=== PATIENT | male | born 1975 | race Caucasian/White ===

== ENCOUNTER 2016-11-09 09:53 | Emergency (ER) | payer OTHER ==
--- NOTE | 2016-11-09 16:10 | ED ORDER SUMMARY ---
..... Patient: LEONARD CASTILLO JR OrderSheet [facility] VisitID: [id number] [place] [address] 40y, M Registration Date/Time: 11/09/2016 ORDER SHEET Weight: 86.1 kg (stated) Allergies: Toradol, Codeine, Zofran GENERAL ORDERS: Blood Culture (No) (N/A) Urgent (10:40 11/09/2016 Rakesh Handley) (Ack 10:42 TBergley) CBC w Diff Urgent (10:40 11/09/2016 Rakesh Handley) (Ack 10:42 TBergley) CMP Urgent (10:40 11/09/2016 Rakesh Handley) (Ack 10:42 TBergley) UA-Culture if indicated Urgent (10:40 11/09/2016 Rakesh Handley) (Ack 10:42 TBergley) (13:59 LSullivan R.N.) Urine Drug Screen Urgent (10:40 11/09/2016 Rakesh Handley) (Ack 10:42 TBergley) (13:59 LSullivan R.N.) MEDICATION ORDERS: Phenergan IV 12.5 mg (HIGH ALERT MEDICATION, NOW) (11:00 11/09/2016 Rakesh Handley) (11:07 LSullivan R.N.) Phenergan IV 12.5 mg (HIGH ALERT MEDICATION, NOW) (13:31 11/09/2016 Rakesh Handley) (14:19 LSullivan R.N.) IV FLUIDS: IV Saline Lock (10:40 11/09/2016 Rakesh Handley) (10:47 LSullivan R.N.) Demerol IV 25 mg (HIGH ALERT MEDICATION, NOW) (10:41 11/09/2016 Rakesh Handley) (10:57 LSullivan R.N.) IV NS : initial bolus none -, then 1000 mL/hr for X1 (NOW) (11:00 11/09/2016 Rakesh Handley) (11:08 LSullivan R.N.) Demerol IV 25 mg (HIGH ALERT MEDICATION, NOW) (13:28 11/09/2016 Rakesh Handley) (14:20 Zain Rodriguez) ORDER SHEET NOTES: [Electronically signed by Adrian Coppola Dr. (16:14 11/09/2016)] [Electronically signed by Mary Anne Kohli R.N. (19:17 11/09/2016)] [Electronically locked/signed by Mary Anne Kohli R.N. (19:17 11/09/2016)]
--- NOTE | 2016-11-09 16:10 | ED NURSING NOTES ---
Clinical Report - Nurses [facility] [address] [place] [address] 11/09/2016 9:53 Patient: LEONARD CASTILLO JR TRIAGE Triage time 10:11 Nov 09 2016. Acuity: LEVEL 4. Chief Complaint: SKIN PROBLEM and BOIL. SEPSIS SCREEN: Sepsis Screen: negative. Infection suspected/documented. MAURICIO COMA SCORE: [place] Coma Scale: 15- eyes open spontaneously (4); best verbal response- oriented x 4 (5); best motor response- obeys commands (6). --10:17 Fer Jones R.N. 10:11 11/09/16. BP: 138/58. HR: 84. RR: 18. O2 saturation: 100%. Temp: 98.2 F. Pain level now 06/07. --10:17 Fer Jones R.N. Weight: 86.1 kg stated. Height/Length: 71 inches Per Patient. BMI: 26.5. --10:12 Fer Jones R.N. Medications None. --10:15 Fer Jones R.N. Allergies Toradol. --10:15 Fer Jones R.N. Codeine. --10:15 Fer Jones R.N. Zofran. --10:15 Fer Jones R.N. History Arrived by private vehicle. Historian: patient. Accompanied by family. Reported as (left bittocks). It is described as severely painful. ( Has large abscess on left buttocks. Patient denies recent injections in that area with drugs. this area was a previous abscess. MRSA carrier.). No fever, muscle aches, headache, cough or difficulty breathing. No itching or weakness. Not itchy. 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 PAST MEDICAL HX: Immunizations: up-to-date. SOCIAL HX: Never smoker. History of drug use. (clean for 4 months per pt). No alcohol use. SELF HARM ASSESSMENT: A self harm assessment was performed. The patient answered "no" to the question "Have you recently felt down, depressed, or hopeless?" and "Do you have thoughts of harming or killing yourself?". FALL RISK ASSESSMENT: Fall risk assessment completed. No fall risk identified. NUTRITIONAL RISK ASSESSMENT: The nutritional risk assessment revealed no deficiencies. FUNCTIONAL ASSESSMENT: Functional assessment: no impairments noted. LEARNING NEEDS ASSESSMENT: The learning needs assessment revealed no barriers. ABUSE ASSESSMENT: Abuse assessment: (yes) The patient was asked "Do you feel safe in your home?". SKIN INTEGRITY ASSESSMENT: Skin integrity risk assessment completed. No skin integrity risk identified. --10:17 Fer Jones R.N. PROBLEMS: Lifestyle / Substance Problems. Prior Injury, Same Area. Fall. Abscess. Substance Abuse. Sprain. Contusion. Mechanism of Injury. Tetanus Status. Immunizations. Nephrolithiasis. --10:15 Fer Jones R.N. ADDITIONAL SURGERIES: Cholecystectomy. I&D. --10:15 Fer Jones R.N. Interventions ID and allergy band on patient. --10:17 Fer Jones R.N. PHYSICAL ASSESSMENT Ambulatory to room. ( Has a right broken arm which is casted.). GENERAL / NEURO / PSYCH: Alert. The patient does not appear to be in acute distress. Appears in pain. Oriented X 4. HEENT: Pupils equal, round and reactive to light. Mucous membranes are pink. RESPIRATORY: Respirations not labored. Breath sounds within normal limits. CVS: Capillary refill less than 2 seconds. Pulses within normal limits. GI / : Abdomen nontender. SKIN: Skin lesion present. --10:18 Fer Jones R.N. NURSING PROGRESS NOTES The initial plan of care for this patient includes an assessment with efforts to address impairment of the integumentary system; hydration needs. Pulse oximeter and NIBP monitor placed on patient. Reassurance given. Call light placed in reach. Side rails up x 1. Bed placed in lowest position. Brakes of bed on. --10:18 Fer Jones R.N. 10:47 11/09/2016 Site #1 started via IV in the left hand with an 24g angiocath, with aseptic technique and good blood return; two attempts. Saline lock flushed with 5 mL saline (UNABLE TO GET BLOOD SAMPLES). --10:47 Mary Anne Kohli R.N. 10:51 11/09/2016 Demerol (Meperidine HCl) IVP 25 mg given over 1 minute(s) via site #1. Allergies verified and confirmed 5 rights. --10:57 Mary Anne Kohli R.N. 11:07 11/09/2016 PHENERGAN (Promethazine HCl) IVP 12.5 mg given over 2 minute(s) via site #1. Allergies verified and confirmed 5 rights. (diluted in NS). --11:07 Mary Anne Kohli R.N. 11:08 11/09/2016 Started bag #1 1000 mL IV Fluids IV NS (Saline); at 125 mL/hr via site #1 via IV pump. Confirmed 5 rights. IV patency established. IV site checked: no pain, redness, or swelling. IV flushed thoroughly pre- and post-medication administration (Tiny vein will not handle 1000mls/hr so rate adjusted so as to not blow the vein.). --11:08 Mary Anne Kohli R.N. ( Pt became nauseated from the Demerol, Phenergan given for nausea, and fluids started, after consulting with MYNOR). --11:09 Mary Anne Kohli R.N. 14:18 11/09/2016 PHENERGAN (Promethazine HCl) IVP 12.5 mg given over 1 minute(s) via site #1. Confirmed 5 rights. --14:19 Mary Anne Kohli R.N. 14:20 11/09/2016 Demerol (Meperidine HCl) IVP 25 mg given over 1 minute(s) via site #1. Confirmed 5 rights. --14:20 Mary Anne Kolhi R.N. DISPOSITION / DISCHARGE Departure time: 16:24 Nov 09 2016. No learning barriers present. Discharge instructions provided and reviewed with the patient. Reviewed warnings. Reviewed medication(s). Treatments reviewed. Reviewed referrals. Patient verbalized understanding. Written instructions provided in Macedonian. The patient was discharged home and accompanied by family. He left the Emergency Department ambulatory and via private vehicle. Patient driving. ( Patient had I &D per Dr.Altman. Wound packed and dressed with gauze dressing.). --16:24 Fer Jones R.N. 16:22 11/09/16. BP: 130/70. HR: 80. RR: 20. O2 saturation: 100%. Temp: 98.6 F. Pain level now 04/07. --16:24 Fer Jones R.N. Locked/Released at 11/09/2016 19:17 by Mary Anne Kohli R.N.
--- NOTE | 2016-11-09 16:10 | ED ORDER SUMMARY ---
..... Patient: LEONARD CASTILLO JR OrderSheet [facility] VisitID: [id number] [place] [address] 40y, M Registration Date/Time: 11/09/2016 ORDER SHEET Weight: 86.1 kg (stated) Allergies: Toradol, Codeine, Zofran GENERAL ORDERS: Blood Culture (No) (N/A) Urgent (10:40 11/09/2016 Rakesh Handley) (Ack 10:42 TBergley) CBC w Diff Urgent (10:40 11/09/2016 Rakesh Handley) (Ack 10:42 TBergley) CMP Urgent (10:40 11/09/2016 Rakesh Handley) (Ack 10:42 TBergley) UA-Culture if indicated Urgent (10:40 11/09/2016 Rakesh Handley) (Ack 10:42 TBergley) (13:59 LSullivan R.N.) Urine Drug Screen Urgent (10:40 11/09/2016 Rakesh Handley) (Ack 10:42 TBergley) (13:59 LSullivan R.N.) MEDICATION ORDERS: Phenergan IV 12.5 mg (HIGH ALERT MEDICATION, NOW) (11:00 11/09/2016 Rakesh Handley) (11:07 LSullivan R.N.) Phenergan IV 12.5 mg (HIGH ALERT MEDICATION, NOW) (13:31 11/09/2016 Rakesh Handley) (14:19 LSullivan R.N.) IV FLUIDS: IV Saline Lock (10:40 11/09/2016 Rakesh Handley) (10:47 LSullivan R.N.) Demerol IV 25 mg (HIGH ALERT MEDICATION, NOW) (10:41 11/09/2016 Rakesh Handley) (10:57 LSullivan R.N.) IV NS : initial bolus none -, then 1000 mL/hr for X1 (NOW) (11:00 11/09/2016 Rakesh Handley) (11:08 LSullivan R.N.) Demerol IV 25 mg (HIGH ALERT MEDICATION, NOW) (13:28 11/09/2016 Rakesh Handley) (14:20 Zain Rodriguez) ORDER SHEET NOTES: [Electronically signed by Adrian Coppola Dr. (16:14 11/09/2016)] [Electronically signed by Mary Anne Kohli R.N. (19:17 11/09/2016)] [Electronically locked/signed by Mary Anne Kohli R.N. (19:17 11/09/2016)]
--- NOTE | 2016-11-09 16:10 | ED CLINICAL REPORT ---
Clinical Report - Physicians[facility] [address] [place] [place] [address] 11/09/2016 9:53 Patient: LEONARD CASTILLO JR Time Seen: 10:12; initial patient contact. Arrived- By private vehicle. Historian- patient. HISTORY OF PRESENT ILLNESS Chief Complaint: BOIL. This started yesterday and is still present and worsening. It was gradual in onset. It is described as painful. It has been located on the left buttock. A possible cause has been identified. No recent medication or insect bite. Similar symptoms previously: Many times. ( Has undergone I&D in the same area 2x prior. No longer shooting up, sober ~ 4 months). Recent medical care: Not recently seen/assessed. REVIEW OF SYSTEMS No fever, nausea, diarrhea, joint pain or vomiting. He has had chills. All systems otherwise negative, except as recorded above. PAST HISTORY Lifestyle / Substance Problems. Prior Injury, Same Area. Fall. Abscess. Substance Abuse. Sprain. Contusion. Mechanism of Injury. Tetanus Status. Immunizations. Nephrolithiasis. SURGERIES: Cholecystectomy. I&D. SOCIAL HISTORY Never smoker. 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 No alcohol use. ADDITIONAL NOTES The nursing notes have been reviewed with agreement regarding the chief complaint, PMH and patient medications and allergies. PHYSICAL EXAM Vital Signs: 11/09/2016 10:11 BP: 138/58. HR: 84. RR: 18. O2 saturation: 100%. Temp: 98.2 F. Have been reviewed. Hypotensive. Heart rate normal. Respiratory rate normal. Temperature normal. Oxygen saturation normal. Appearance: Alert. Oriented X3. No acute distress. Eyes: Conjunctivae and eyelids normal. CVS: Normal heart rate and rhythm. Heart sounds normal. Respiratory: No respiratory distress. Breath sounds normal. Abdomen: Nontender. No organomegaly. Skin: Single large abscess to left buttock (length:20 cm width:10 cm). Extremities: No lower extremity edema. Neuro: Oriented X 3. LABS, X-RAYS, AND EKG Laboratory Tests: UA-Culture if indicated: (JAELYN: 11/09/2016 10:40) ( [facility] 11/09/2016 12:15) Final results Test Result Flag Units (Reference) URINE COLOR YELLOW URINE APPEARANCE CLEAR URINE GLUCOSE NEGATIVE (NEGATIVE) URINE BILIRUBIN NEGATIVE (NEGATIVE) URINE KETONE NEGATIVE (NEGATIVE) URINE SPECIFIC GRAVITY 1.025 (1.010-1.030) URINE PH 5.5 (5.0-8.0) URINE PROTEIN TRACE (NEGATIVE) URINE UROBILINOGEN 1.0 EU/dL (0.2-1.0) URINE NITRITE NEGATIVE (NEGATIVE) URINE BLOOD NEGATIVE (NEGATIVE) URINE LEUK ESTERASE NEGATIVE (NEGATIVE) URINE RBC 0-1 rbc/hpf (0-1) URINE WBC 0-1 wbc/hpf (0-1) URINE EPITHELIAL CELLS 0-1 EPI/hpf (0-5) URINE BACTERIA NONE SEEN (NONE SEEN) URINE COMMENT CULT NOT INDICATED 2+ MUCOUS STRANDSURINE CULTURES ARE SET-UP BASED ON THE FOLLOWING CRITERIA:POSITIVE NITRITEPOSITIVE LEUKOCYTE ESTERASEGREATER THAN 10 WHITE BLOOD CELLSMODERATE (2+) OR GREATER BACTERIA CBC w Diff: (JAELYN: 11/09/2016 14:05) ( [facility] 11/09/2016 15:19) Final results Test Result Flag Units (Reference) WHITE BLOOD COUNT 19.9 H K/uL (4.5-11.5) RED BLOOD COUNT 3.75 L M/uL (4.50-5.90) HEMOGLOBIN 7.8 L gm/dL (13.5-17.5) HEMATOCRIT 25.3 L % (41.0-53.0) MEAN CELL VOLUME 68 L fL (80-100) MEAN CORPUSCULAR HGB 21 L pg (26-34) MEAN CORPUSCULAR HGB CONC 31 g/dL (31-37) RED CELL DISTRIBUTION WIDTH 17.7 H % (11.6-14.8) PLATELET COUNT 711 H K/uL (150-400) NEUTROPHIL % 88.4 H % (50-75) LYMPH % 8.4 L % (25-40) MONO % 2.8 L % (3-14) EOSINOPHIL % 0.2 % (0-4) BASOPHIL % 0.2 % (0-2) RBC MORPHOLOGY 2+ MICROCYTOSIS~~1+ HYPOCHROMASIA~~1+ ANISOCYTOSIS Urine Drug Screen: (JAELYN: 11/09/2016 10:40) ( MsgRcvd 11/09/2016 12:10) Final results Test Result Flag Units (Reference) AMPHETAMINE/METHAMPHETAMINE NEGATIVE (NEGATIVE) BARBITURATE NEGATIVE (NEGATIVE) BENZODIAZEPINE NEGATIVE (NEGATIVE) CANNABINOID NEGATIVE (NEGATIVE) COCAINE NEGATIVE (NEGATIVE) ECSTASY NEGATIVE (NEGATIVE) METHADONE POSITIVE H (NEGATIVE) OPIATE POSITIVE H (NEGATIVE) The urine drug screen is a qualitative screening test fordrug overdose and abuse. All screen results should beconsidered as presumptive.Drugs screened for are as follows:BenzodiazepinesCocaineAmphetamines/MetamphetaminesTHC (Tetrahydrocannabinol)OpiatesBarbituratesEcstasyMethadonePositive results are unconfirmed. For confirmation, notifythe lab for the specimen to be sent to the reference lab.All confirmations must be performed by a differentmethodology.The ingestion of natural herbal and plant productscontaining Ephedra/Ephedra metabolites can produce in urineone or more substances capable of cross reacting withamphetamine/methamphetamine immunoassays. These testsprovide a preliminary result only. A more specificalternative chemical method must be used to obtain aconfirmed analytical result. CMP: (JAELYN: 11/09/2016 14:33) ( MsgRcvd 11/09/2016 15:22) Final results Test Result Flag Units (Reference) GLUCOSE 91 mg/dL (70-110) BUN 12 mg/dL (7-18) CREATININE 0.8 mg/dL (0.6-1.3) Estimated GFR >60 mL/min Estimated GFR- >60 mL/min Note: Persistent reduction over 3 months in eGFR<60 mL/min/1.73 m2 defines CKD. Patients with eGFR values>=60 mL/min/1.73 m2 may also have CKD if evidence ofpersistent proteinuria. Additional information may be foundat www.kidney.org. SODIUM 141 mmol/L (136-145) POTASSIUM 3.7 mmol/L (3.5-5.1) CHLORIDE 106 mmol/L (98-107) CARBON DIOXIDE 26 mmol/L (21-32) CALCIUM 8.3 L mg/dL (8.5-10.1) TOTAL PROTEIN 9.0 H g/dL (6.4-8.2) ALBUMIN 2.3 L g/dL (3.3-5.0) BILIRUBIN, TOTAL 0.6 mg/dL (0.0-1.0) ALKALINE PHOSPHATASE 182 H U/L (46-116) AST (SGOT) 22 U/L (15-37) ALT (SGPT) 36 U/L (12-78) . PROGRESS AND PROCEDURES Course of Care: 11/09/2016 10:11 BP: 138/58. HR: 84. RR: 18. O2 saturation: 100%. Temp: 98.2 F. Vital Signs: have been reviewed. Hypotensive. Heart rate normal. Respiratory rate normal. Temperature normal. Oxygen saturation normal. Discussed case with on-call health care provider, (call returned [phone] Dr. Medeiros saw pt in ED and performed I&D at bedside and D/C'd pt from the ED.). Reviewed test results and need for additional work-up. Health care provider will see patient in ED. Disposition: Discharged home in good and improved condition. Condition: good. CLINICAL IMPRESSION Single deep abscess to the left lower extremity with incision and drainage. Moderate leukocytosis with bandemia. INSTRUCTIONS Prescription Medications: Hydrocodone/APAP 5mg / 325mg: take 1 orally every 6 hours as needed for pain. Dispense fifteen (15). No refill. Clindamycin 300 mg: take 1 capsule orally every 8 hours for 7 days. No refill. Follow-up: Return to the emergency department in two days for wound check and packing removal. Screening today revealed the patient's blood pressure to be in the pre-hypertensive range. The patient should follow up with a primary care provider for blood pressure management. (Electronically signed by Adrian Coppola Dr. 11/09/2016 16:14)
--- NOTE | 2016-11-09 16:10 | ED CLINICAL REPORT ---
Clinical Report - [facility] [address] [place] [address] 11/09/2016 9:53 Patient: LEONARD CASTILLO JR Time Seen: 10:12; initial patient contact. Arrived- By private vehicle. Historian- patient. HISTORY OF PRESENT ILLNESS Chief Complaint: BOIL. This started yesterday and is still present and worsening. It was gradual in onset. It is described as painful. It has been located on the left buttock. A possible cause has been identified. No recent medication or insect bite. Similar symptoms previously: Many times. ( Has undergone I&D in the same area 2x prior. No longer shooting up, sober ~ 4 months). Recent medical care: Not recently seen/assessed. REVIEW OF SYSTEMS No fever, nausea, diarrhea, joint pain or vomiting. He has had chills. All systems otherwise negative, except as recorded above. PAST HISTORY Lifestyle / Substance Problems. Prior Injury, Same Area. Fall. Abscess. Substance Abuse. Sprain. Contusion. Mechanism of Injury. Tetanus Status. Immunizations. Nephrolithiasis. SURGERIES: Cholecystectomy. I&D. SOCIAL HISTORY Never smoker. 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 No alcohol use. ADDITIONAL NOTES The nursing notes have been reviewed with agreement regarding the chief complaint, PMH and patient medications and allergies. PHYSICAL EXAM Vital Signs: 11/09/2016 10:11 BP: 138/58. HR: 84. RR: 18. O2 saturation: 100%. Temp: 98.2 F. Have been reviewed. Hypotensive. Heart rate normal. Respiratory rate normal. Temperature normal. Oxygen saturation normal. Appearance: Alert. Oriented X3. No acute distress. Eyes: Conjunctivae and eyelids normal. CVS: Normal heart rate and rhythm. Heart sounds normal. Respiratory: No respiratory distress. Breath sounds normal. Abdomen: Nontender. No organomegaly. Skin: Single large abscess to left buttock (length:20 cm width:10 cm). Extremities: No lower extremity edema. Neuro: Oriented X 3. LABS, X-RAYS, AND EKG Laboratory Tests: UA-Culture if indicated: (JAELYN: 11/09/2016 10:40) ( [facility] 11/09/2016 12:15) Final results Test Result Flag Units (Reference) URINE COLOR YELLOW URINE APPEARANCE CLEAR URINE GLUCOSE NEGATIVE (NEGATIVE) URINE BILIRUBIN NEGATIVE (NEGATIVE) URINE KETONE NEGATIVE (NEGATIVE) URINE SPECIFIC GRAVITY 1.025 (1.010-1.030) URINE PH 5.5 (5.0-8.0) URINE PROTEIN TRACE (NEGATIVE) URINE UROBILINOGEN 1.0 EU/dL (0.2-1.0) URINE NITRITE NEGATIVE (NEGATIVE) URINE BLOOD NEGATIVE (NEGATIVE) URINE LEUK ESTERASE NEGATIVE (NEGATIVE) URINE RBC 0-1 rbc/hpf (0-1) URINE WBC 0-1 wbc/hpf (0-1) URINE EPITHELIAL CELLS 0-1 EPI/hpf (0-5) URINE BACTERIA NONE SEEN (NONE SEEN) URINE COMMENT CULT NOT INDICATED 2+ MUCOUS STRANDSURINE CULTURES ARE SET-UP BASED ON THE FOLLOWING CRITERIA:POSITIVE NITRITEPOSITIVE LEUKOCYTE ESTERASEGREATER THAN 10 WHITE BLOOD CELLSMODERATE (2+) OR GREATER BACTERIA CBC w Diff: (JAELYN: 11/09/2016 14:05) ( [facility] 11/09/2016 15:19) Final results Test Result Flag Units (Reference) WHITE BLOOD COUNT 19.9 H K/uL (4.5-11.5) RED BLOOD COUNT 3.75 L M/uL (4.50-5.90) HEMOGLOBIN 7.8 L gm/dL (13.5-17.5) HEMATOCRIT 25.3 L % (41.0-53.0) MEAN CELL VOLUME 68 L fL (80-100) MEAN CORPUSCULAR HGB 21 L pg (26-34) MEAN CORPUSCULAR HGB CONC 31 g/dL (31-37) RED CELL DISTRIBUTION WIDTH 17.7 H % (11.6-14.8) PLATELET COUNT 711 H K/uL (150-400) NEUTROPHIL % 88.4 H % (50-75) LYMPH % 8.4 L % (25-40) MONO % 2.8 L % (3-14) EOSINOPHIL % 0.2 % (0-4) BASOPHIL % 0.2 % (0-2) RBC MORPHOLOGY 2+ MICROCYTOSIS~~1+ HYPOCHROMASIA~~1+ ANISOCYTOSIS Urine Drug Screen: (JAELYN: 11/09/2016 10:40) ( MsgRcvd 11/09/2016 12:10) Final results Test Result Flag Units (Reference) AMPHETAMINE/METHAMPHETAMINE NEGATIVE (NEGATIVE) BARBITURATE NEGATIVE (NEGATIVE) BENZODIAZEPINE NEGATIVE (NEGATIVE) CANNABINOID NEGATIVE (NEGATIVE) COCAINE NEGATIVE (NEGATIVE) ECSTASY NEGATIVE (NEGATIVE) METHADONE POSITIVE H (NEGATIVE) OPIATE POSITIVE H (NEGATIVE) The urine drug screen is a qualitative screening test fordrug overdose and abuse. All screen results should beconsidered as presumptive.Drugs screened for are as follows:BenzodiazepinesCocaineAmphetamines/MetamphetaminesTHC (Tetrahydrocannabinol)OpiatesBarbituratesEcstasyMethadonePositive results are unconfirmed. For confirmation, notifythe lab for the specimen to be sent to the reference lab.All confirmations must be performed by a differentmethodology.The ingestion of natural herbal and plant productscontaining Ephedra/Ephedra metabolites can produce in urineone or more substances capable of cross reacting withamphetamine/methamphetamine immunoassays. These testsprovide a preliminary result only. A more specificalternative chemical method must be used to obtain aconfirmed analytical result. CMP: (JAELYN: 11/09/2016 14:33) ( MsgRcvd 11/09/2016 15:22) Final results Test Result Flag Units (Reference) GLUCOSE 91 mg/dL (70-110) BUN 12 mg/dL (7-18) CREATININE 0.8 mg/dL (0.6-1.3) Estimated GFR >60 mL/min Estimated GFR- >60 mL/min Note: Persistent reduction over 3 months in eGFR<60 mL/min/1.73 m2 defines CKD. Patients with eGFR values>=60 mL/min/1.73 m2 may also have CKD if evidence ofpersistent proteinuria. Additional information may be foundat www.kidney.org. SODIUM 141 mmol/L (136-145) POTASSIUM 3.7 mmol/L (3.5-5.1) CHLORIDE 106 mmol/L (98-107) CARBON DIOXIDE 26 mmol/L (21-32) CALCIUM 8.3 L mg/dL (8.5-10.1) TOTAL PROTEIN 9.0 H g/dL (6.4-8.2) ALBUMIN 2.3 L g/dL (3.3-5.0) BILIRUBIN, TOTAL 0.6 mg/dL (0.0-1.0) ALKALINE PHOSPHATASE 182 H U/L (46-116) AST (SGOT) 22 U/L (15-37) ALT (SGPT) 36 U/L (12-78) . PROGRESS AND PROCEDURES Course of Care: 11/09/2016 10:11 BP: 138/58. HR: 84. RR: 18. O2 saturation: 100%. Temp: 98.2 F. Vital Signs: have been reviewed. Hypotensive. Heart rate normal. Respiratory rate normal. Temperature normal. Oxygen saturation normal. Discussed case with on-call health care provider, (call returned [phone] Dr. Medeiros saw pt in ED and performed I&D at bedside and D/C'd pt from the ED.). Reviewed test results and need for additional work-up. Health care provider will see patient in ED. Disposition: Discharged home in good and improved condition. Condition: good. CLINICAL IMPRESSION Single deep abscess to the left lower extremity with incision and drainage. Moderate leukocytosis with bandemia. INSTRUCTIONS Prescription Medications: Hydrocodone/APAP 5mg / 325mg: take 1 orally every 6 hours as needed for pain. Dispense fifteen (15). No refill. Clindamycin 300 mg: take 1 capsule orally every 8 hours for 7 days. No refill. Follow-up: Return to the emergency department in two days for wound check and packing removal. Screening today revealed the patient's blood pressure to be in the pre-hypertensive range. The patient should follow up with a primary care provider for blood pressure management. (Electronically signed by Adrian Coppola Dr. 11/09/2016 16:14)
--- NOTE | 2016-11-09 16:20 | PROCEDURE NOTE ---
DATE OF PROCEDURE: 11/09/2016 ATTENDING PHYSICIAN/PROVIDER: Kobe Fernandez MD PREOPERATIVE DIAGNOSIS: 1. Recurrent large left buttock abscess POSTOPERATIVE DIAGNOSIS: 1. Recurrent large left buttock abscess PROCEDURE PERFORMED: 1. Incision and drainage of left buttock abscess. ANESTHESIA: Local. INDICATIONS: The patient is a 40-year-old man with a several day history of increasing pain and swelling in his left buttock. He had a drain there many years ago where he had similar location abscess secondary to injection of drugs. At this time, reports no drugs in the immediate past. SURGICAL TECHNIQUE: The patient was treated in the emergency room after being first evaluated and managed by the emergency department physician. The left buttock was prepped with alcohol and a local anesthetic of 1% Xylocaine mixed with 0.5% Marcaine with epinephrine was infiltrated at the old scar in the inferior portion of this fluctuant area on the buttock. The fluctuant area as about 15 x 10 cm. A 15 scalpel blade was used to incise the area and make a 5 cm incision to allow for adequate drainage. There was a copious return of foul swelling anaerobic pus. Once the spontaneous issuance of pus was over, the wound was rinsed with several syringes of local anesthetic which was milked out, following which a moistened gauze wick was placed within the wound and covered with absorbent gauze. The patient was instructed to return for dressing changes tomorrow and further followup can be through either his primary care or through the [facility].
--- NOTE | 2016-11-09 19:17 | ED MED RECONCILIATION SUMMARY ---
Patient: LEONARD CASTILLO Medication Reconciliation Report [facility] VisitID: [id number] [address] [place] [address] 40y, M Registration Date/Time: 11/09/2016 Weight: 86.1 kg Height/Length: 71 in. BMI: 26.5 ALLERGIES: Codeine, Toradol, Zofran The patient's Home Medications are listed below: NONE. The source(s) of the original Home Medication information: Not obtained. The following Medications were given to the patient in the Emergency Department: Demerol [IVP] IVP 25 mg, administered: 11/09/2016 10:51:00 AM PHENERGAN [IVP] IVP 12.5 mg, administered: 11/09/2016 11:07:00 AM IV NS IV Fluids bolus 0, then 125 mL/hr, administered: 11/09/2016 11:08:00 AM PHENERGAN [IVP] IVP 12.5 mg, administered: 11/09/2016 2:18:00 PM Demerol [IVP] IVP 25 mg, administered: 11/09/2016 2:20:00 PM The following Medications were prescribed to the patient: Hydrocodone/APAP 5mg / 325mg: take 1 orally every 6 hours as needed for pain. Dispense fifteen (15). No refill. -- Adrian Coppola Dr. Clindamycin 300 mg: take 1 capsule orally every 8 hours for 7 days. No refill. -- Adrian Coppola Dr.
--- NOTE | 2016-11-09 19:17 | ED MAR SUMMARY ---
..... Medication Administration Record [facility] [address] [place] [address] Patient: LEONARD CASTILLO Visit ID: [id number] 40y, M Weight: 86.1 kg Height/Length: 71 in BMI: 26.5 ALLERGIES: Zofran, Codeine, Toradol Given 10:51 11/09/2016 Mary Anne Kohli R.N. Medication Administered: DEMEROL [IVP] (MEPERIDINE HCL), Dose: 25 mg IVP over 1 minute(s), Site: #1 left hand. Medication Ordered: Demerol IV 25 mg (HIGH ALERT MEDICATION, NOW). Given 11:07 11/09/2016 Mary Anne Kohli R.N. Medication Administered: PHENERGAN [IVP] (PROMETHAZINE HCL), Dose: 12.5 mg IVP over 2 minute(s), Site: #1 left hand. Medication Ordered: Phenergan IV 12.5 mg (HIGH ALERT MEDICATION, NOW). Start 11:08 11/09/2016 Mary Anne Kohli R.N. Medication Administered: IV NS (SALINE), Dose: IV Fluids, Rate: 125 mL/hr, Dispensed: 1000 mL bag, Site: #1 left hand. Medication Ordered: IV NS : initial bolus none -, then 1000 mL/hr for X1 (NOW). Given 14:18 11/09/2016 Mary Anne Kohli R.N. Medication Administered: PHENERGAN [IVP] (PROMETHAZINE HCL), Dose: 12.5 mg IVP over 1 minute(s), Site: #1 left hand. Medication Ordered: Phenergan IV 12.5 mg (HIGH ALERT MEDICATION, NOW). Given 14:20 11/09/2016 Mary Anne Kohli R.N. Medication Administered: DEMEROL [IVP] (MEPERIDINE HCL), Dose: 25 mg IVP over 1 minute(s), Site: #1 left hand. Medication Ordered: Demerol IV 25 mg (HIGH ALERT MEDICATION, NOW).
--- NOTE | 2016-11-09 19:17 | ED MAR SUMMARY ---
..... Medication Administration Record [facility] [address] [place] [address] Patient: LEONARD CASTILLO Visit ID: [id number] 40y, M Weight: 86.1 kg Height/Length: 71 in BMI: 26.5 ALLERGIES: Zofran, Codeine, Toradol Given 10:51 11/09/2016 Mary Anne Kohli R.N. Medication Administered: DEMEROL [IVP] (MEPERIDINE HCL), Dose: 25 mg IVP over 1 minute(s), Site: #1 left hand. Medication Ordered: Demerol IV 25 mg (HIGH ALERT MEDICATION, NOW). Given 11:07 11/09/2016 Mary Anne Kohli R.N. Medication Administered: PHENERGAN [IVP] (PROMETHAZINE HCL), Dose: 12.5 mg IVP over 2 minute(s), Site: #1 left hand. Medication Ordered: Phenergan IV 12.5 mg (HIGH ALERT MEDICATION, NOW). Start 11:08 11/09/2016 Mary Anne Kohli R.N. Medication Administered: IV NS (SALINE), Dose: IV Fluids, Rate: 125 mL/hr, Dispensed: 1000 mL bag, Site: #1 left hand. Medication Ordered: IV NS : initial bolus none -, then 1000 mL/hr for X1 (NOW). Given 14:18 11/09/2016 Mary Anne Kohli R.N. Medication Administered: PHENERGAN [IVP] (PROMETHAZINE HCL), Dose: 12.5 mg IVP over 1 minute(s), Site: #1 left hand. Medication Ordered: Phenergan IV 12.5 mg (HIGH ALERT MEDICATION, NOW). Given 14:20 11/09/2016 Mary Anne Kohli R.N. Medication Administered: DEMEROL [IVP] (MEPERIDINE HCL), Dose: 25 mg IVP over 1 minute(s), Site: #1 left hand. Medication Ordered: Demerol IV 25 mg (HIGH ALERT MEDICATION, NOW).
--- NOTE | 2016-11-09 19:17 | ED MED RECONCILIATION SUMMARY ---
Patient: LEONARD CASTILLO Medication Reconciliation Report [facility] VisitID: [id number] [address] [place] [address] 40y, M Registration Date/Time: 11/09/2016 Weight: 86.1 kg Height/Length: 71 in. BMI: 26.5 ALLERGIES: Codeine, Toradol, Zofran The patient's Home Medications are listed below: NONE. The source(s) of the original Home Medication information: Not obtained. The following Medications were given to the patient in the Emergency Department: Demerol [IVP] IVP 25 mg, administered: 11/09/2016 10:51:00 AM PHENERGAN [IVP] IVP 12.5 mg, administered: 11/09/2016 11:07:00 AM IV NS IV Fluids bolus 0, then 125 mL/hr, administered: 11/09/2016 11:08:00 AM PHENERGAN [IVP] IVP 12.5 mg, administered: 11/09/2016 2:18:00 PM Demerol [IVP] IVP 25 mg, administered: 11/09/2016 2:20:00 PM The following Medications were prescribed to the patient: Hydrocodone/APAP 5mg / 325mg: take 1 orally every 6 hours as needed for pain. Dispense fifteen (15). No refill. -- Adrian Coppola Dr. Clindamycin 300 mg: take 1 capsule orally every 8 hours for 7 days. No refill. -- Adrian Coppola Dr.
--- NOTE | 2016-11-09 19:17 | ED DISCHARGE INSTRUCTIONS ---
Patient: LEONARD CASTILLO JR General Instructions [facility] VisitID: [id number] [place] [address] 40y, M Registration Date/Time: 11/09/2016 Single deep abscess to the left lower extremity with incision and drainage. Moderate leukocytosis with bandemia. INSTRUCTIONS Prescription Medications: Hydrocodone/APAP 5mg / 325mg: take 1 orally every 6 hours as needed for pain. Dispense fifteen (15). No refill. Clindamycin 300 mg: take 1 capsule orally every 8 hours for 7 days. No refill. Follow-up: Return to the emergency department in two days for wound check and packing removal. Screening today revealed the patient's blood pressure to be in the pre-hypertensive range. The patient should follow up with a primary care provider for blood pressure management. ADDITIONAL INFORMATION Abscess [Incision & Drainage] An abscess (sometimes called a boil) occurs when bacteria get trapped under the skin and begin to grow. Pus forms inside the abscess as the body responds to the bacteria. An abscess can occur with an insect bite, ingrown hair, blocked oil gland, pimple, cyst, or puncture wound. Treatment of your abscess has required an incision to drain the pus. If the abscess pocket was large, a gauze packing may have been inserted. This will need to be removed and possibly replaced on your next visit. Antibiotics are not required in the treatment of a simple abscess, unless the infection is spreading into the skin around the wound (known as cellulitis). Healing of the wound will take about one to two weeks depending on the size of the abscess. Healthy tissue will grow from the bottom and sides of the opening until it seals over. Home Care: The wound may drain for the first two days. Cover the wound with a clean dry dressing. If the dressing becomes soaked with blood or pus, change it. If a gauze packing was placed inside the abscess cavity, you may be advised to remove it yourself. You may do this in the shower. Once the packing is removed, you should wash the area in the shower or bath 3 to 4 times a day, until the skin opening has closed. If you were prescribed antibiotics, take them as directed until they are all gone. You may use acetaminophen (Tylenol) or ibuprofen (Motrin, Advil) to control pain, unless another pain medicine was prescribed. [ NOTE: If you have liver disease or ever had a stomach ulcer, talk with your doctor before using these medicines.] Follow Up with your doctor as advised by our staff. If a gauze packing was inserted in your wound, it should be removed in 1-2 days. Check your wound every day for the signs of worsening infection listed below. Get Prompt Medical Attention if any of the following occur: Increasing redness or swelling Red streaks in the skin leading away from the wound Increasing local pain or swelling Continued pus draining from the wound two days after treatment Fever of 100.4F (38C) or higher, or as directed by your healthcare provider Hydrocodone Bitartrate, Acetaminophen Oral tablet What is this medicine? ACETAMINOPHEN; HYDROCODONE (a set a MELITA josh fen; nate droe KOE done) is a pain reliever. It is used to treat mild to moderate pain. How should I use this medicine? Take this medicine by mouth. Swallow it with a full glass of water. Follow the directions on the prescription label. If the medicine upsets your stomach, take the medicine with food or milk. Do not take more than you are told to take. Talk to your online content editor regarding the use of this medicine in children. This medicine is not approved for use in children. What side effects may I notice from receiving this medicine? Side effects that you should report to your doctor or health child care attendant school as soon as possible: allergic reactions like skin rash, itching or hives, swelling of the face, lips, or tongue breathing problems confusion feeling faint or lightheaded, falls stomach pain yellowing of the eyes or skin Side effects that usually do not require medical attention (report to your doctor or health child care attendant school if they continue or are bothersome): nausea, vomiting stomach upset What may interact with this medicine? alcohol antihistamines isoniazid medicines for depression, anxiety, or psychotic disturbances medicines for sleep muscle relaxants naltrexone narcotic medicines (opiates) for pain phenobarbital ritonavir tramadol What if I miss a dose? If you miss a dose, take it as soon as you can. If it is almost time for your next dose, take only that dose. Do not take double or extra doses. Where should I keep my medicine? Keep out of the reach of children. This medicine can be abused. Keep your medicine in a safe place to protect it from theft. Do not share this medicine with anyone. Selling or giving away this medicine is dangerous and against the law. Store at room temperature between 15 and 30 degrees C (59 and 86 degrees F). Protect from light. Keep container tightly closed. Throw away any unused medicine after the expiration date. Discard unused medicine and used packaging carefully. Pets and children can be harmed if they find used or lost packages. What should I tell my health care provider before I take this medicine? They need to know if you have any of these conditions: brain tumor Crohn's disease, inflammatory bowel disease, or ulcerative colitis drink more than 3 alcohol-containing drinks per day drug abuse or addiction head injury heart or circulation problems kidney disease or problems going to the bathroom liver disease lung disease, asthma, or breathing problems an unusual or allergic reaction to acetaminophen, hydrocodone, other opioid analgesics, other medicines, foods, dyes, or preservatives or trying to get breast-feeding What should I watch for while using this medicine? Tell your doctor or health child care attendant school if your pain does not go away, if it gets worse, or if you have new or a different type of pain. You may develop tolerance to the medicine. Tolerance means that you will need a higher dose of the medicine for pain relief. Tolerance is normal and is expected if you take the medicine for a long time. Do not suddenly stop taking your medicine because you may develop a severe reaction. Your body becomes used to the medicine. This does NOT mean you are addicted. Addiction is a behavior related to getting and using a drug for a non-medical reason. If you have pain, you have a medical reason to take pain medicine. Your doctor will tell you how much medicine to take. If your doctor wants you to stop the medicine, the dose will be slowly lowered over time to avoid any side effects. You may get drowsy or dizzy when you first start taking the medicine or change doses. Do not drive, use machinery, or do anything that may be dangerous until you know how the medicine affects you. Stand or sit up slowly. There are different types of narcotic medicines (opiates) for pain. If you take more than one type at the same time, you may have more side effects. Give your health care provider a list of all medicines you use. Your doctor will tell you how much medicine to take. Do not take more medicine than directed. Call emergency for help if you have problems breathing. The medicine will cause constipation. Try to have a bowel movement at least every 2 to 3 days. If you do not have a bowel movement for 3 days, call your doctor or health child care attendant school. Too much acetaminophen can be very dangerous. Do not take Tylenol (acetaminophen) or medicines that contain acetaminophen with this medicine. Many non-prescription medicines contain acetaminophen. Always read the labels carefully. Clindamycin Hydrochloride Oral capsule What is this medicine? CLINDAMYCIN (MITCH Baker) is a lincosamide antibiotic. It is used to treat certain kinds of bacterial infections. It will not work for colds, flu, or other viral infections. How should I use this medicine? Take this medicine by mouth with a full glass of water. Follow the directions on the prescription label. You can take this medicine with food or on an empty stomach. If the medicine upsets your stomach, take it with food. Take your medicine at regular intervals. Do not take your medicine more often than directed. Take all of your medicine as directed even if you think your are better. Do not skip doses or stop your medicine early. Talk to your online content editor regarding the use of this medicine in children. Special care may be needed. What side effects may I notice from receiving this medicine? Side effects that you should report to your doctor or health child care attendant school as soon as possible: allergic reactions like skin rash, itching or hives, swelling of the face, lips, or tongue dark urine pain on swallowing redness, blistering, peeling or loosening of the skin, including inside the mouth unusual bleeding or bruising unusually weak or tired yellowing of eyes or skin Side effects that usually do not require medical attention (report to your doctor or health child care attendant school if they continue or are bothersome): diarrhea itching in the rectal or genital area joint pain nausea, vomiting stomach pain What may interact with this medicine? chloramphenicol erythromycin kaolin products What if I miss a dose? If you miss a dose, take it as soon as you can. If it is almost time for your next dose, take only that dose. Do not take double or extra doses. Where should I keep my medicine? Keep out of the reach of children. Store at room temperature between 20 and 25 degrees C (68 and 77 degrees F). Throw away any unused medicine after the expiration date. What should I tell my health care provider before I take this medicine? They need to know if you have any of these conditions: kidney disease liver disease stomach problems like colitis an unusual or allergic reaction to clindamycin, lincomycin, or other medicines, foods, dyes like tartrazine or preservatives or trying to get breast-feeding What should I watch for while using this medicine? Tell your doctor or healthcare professional if your symptoms do not start to get better or if they get worse. Do not treat diarrhea with over the counter products. Contact your doctor if you have diarrhea that lasts more than 2 days or if it is severe and watery. You have been given the following additional information: Abscess, Incision And Drainage Hydrocodone Bitartrate, Acetaminophen Oral tablet Clindamycin Hydrochloride Oral capsule (Electronically signed by Adrian Coppola Dr. 11/09/2016 16:14)
== END 2016-11-09 16:30 | disposition home or self-care (01) ==
LOC: ED SRH 09:53
DX: L02.31 Cutaneous abscess of buttock (principal); D72.825 Bandemia
CPT/HCPCS: 90004; 90065; 90100; 92760; 92761; 92762; 92763; 92764; 92765; 92766; 92767; 95059

== ENCOUNTER 2017-01-10 10:58 | Emergency (ER) | payer OTHER ==
--- NOTE | 2017-01-10 13:00 | DIAGNOSTIC IMAGING REPORT ---
PROCEDURE: CT PELVIS WITH CONTRAST INDICATION: Left buttock inflammation. Initial encounter. TECHNIQUE: Following 100 ml Isovue 300 intravenously, axial scans obtained through the pelvis with coronal and sagittal re-formations. COMPARISON: CT abdomen/pelvis 12/10/2012 FINDINGS: There is an 11.6 x 5 x 11.2 cm left buttock subcutaneous fluid collection with adjacent inflammatory changes suggestive of an abscess. Underlying musculature is unremarkable. There is mild left inguinal adenopathy. There is no pelvic mass, free fluid or free air. No suspicious osseous lesions. IMPRESSION: 1. Left buttock subcutaneous abscess (11.6 x 5 x 11.2 cm). 2. Results discussed with Dr. Palacios
--- NOTE | 2017-01-10 13:20 | ED ORDER SUMMARY ---
..... Patient: LEONARD CASTILLO JR OrderSheet [facility] VisitID: [id number] [place] [address] 41y, M Registration Date/Time: 01/10/2017 ORDER SHEET Weight: 86.1 kg (stated) Allergies: Zofran, Codeine, Toradol GENERAL ORDERS: CT Pelvis w Cont (11:01/10/2017 Juan Handley) (Ack 11:26 Troy) (13:26 HERACLIOoerner) CBC w Diff Urgent (11:01/10/2017 Juan Handley) (Ack 11:26 Troy) (11:57 MCook R.N.) BMP Urgent (:01/10/2017 Juan Handley) (Ack 11:26 Troy) (11:57 MCook R.N.) Pulse oximeter (11:01/10/2017 Juan Handley) (Ack 11:26 Troy) (11:57 MCook R.N.) Urine Drug Screen Urgent (13:22 01/10/2017 Juan Handley) (Ack 13:23 Sergordang) MEDICATION ORDERS: Phenergan IV 25 mg (HIGH ALERT MEDICATION, NOW) (13:49 01/10/2017 Juan Handley) (13:49 MCook R.N.) IV FLUIDS: IV NS : initial bolus 1000 mL (1000 mL/hr), then none - for X1 (NOW) (11:01/10/2017 Juan Handley) (11:59 MCook R.N.) Morphine IV 8 mg (HIGH ALERT MEDICATION, NOW) (11:01/10/2017 Juan Handley) (12:01 MCook R.N.) Dilaudid IV 2 mg (HIGH ALERT MEDICATION, NOW) (12:29 01/10/2017 Juan Handley) (Ack 12:30 SStone R.N.) (12:34 SStone R.N.) Vancomycin IV 1 gm/200mL (NOW) (13:18 01/10/2017 Juan Handley) (13:46 MCook R.N.) Zosyn IV 4.5 gm/100mL (NOW) (13:19 01/10/2017 Juan Handley) Dilaudid IV 2 mg (once now. may repeat every 2 hours for pain > 5/10) (13:27 01/10/2017 Juan Handley) (13:43 Jacquelyn Rodriguez) ORDER SHEET NOTES: [Electronically signed by Milton Wells R.N. (14:24 01/10/2017)] [Electronically signed by Triston Palacios Dr. (17:22 01/10/2017)] [Electronically locked/signed by Milton Wells R.N. (14:24 01/10/2017)]
--- NOTE | 2017-01-10 13:20 | ED NURSING NOTES ---
Clinical Report - Nurses [facility] [address] [place] [address] 01/10/2017 10:59 Patient: LEONARD CASTILLO JR TRIAGE Triage time 11:13 Jan 10 2017. Acuity: LEVEL 3. Chief Complaint: BOIL and TENDER AREA. SEPSIS SCREEN: Sepsis Screen. Negative (no infection suspected/documented). --11:16 Milton Wells R.N. 11:13 01/10/17. BP: 148/60. HR: 83. RR: 16. O2 saturation: 95% on room air. Temp: 97.8 F. Pain level now: 06/07. --11:16 Milton Wells R.N. Weight: 86.1 kg stated. Height/Length: 71 inches Per Patient. BMI: 26.5. --11:12 Milton Wells R.N. Medications Keflex Oral. --11:48 Milton Wells R.N. Big white pill - antibiotic. --11:48 Milton Wells R.N. Ibuprofen Oral. --11:49 Milton Wells R.N. Medication/allergy information source: the patient. --11:49 Milton Wells R.N. Allergies Zofran. --11:48 Milton Wells R.N. Codeine. --11:48 Milton Wells R.N. Toradol. --11:48 Milton Wells R.N. History Arrived by private vehicle. Historian: patient. Accompanied by family. Location - left flank. Onset. (3 days ago). It is described as severely painful (radiant pain to lower back and hip). He has had fever. 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 Took ibuprofen. (Sister's dilaudid Rx). PAST MEDICAL HX: Immunizations: up-to-date. SOCIAL HX: Never smoker. History of drug use: heroin. (last use "a little over a month ago"). No alcohol use. The patient was exposed to MRSA. (3 years ago r/t abscess on L leg). ABUSE ASSESSMENT: No report of abuse. SELF HARM ASSESSMENT: A self harm assessment was performed. The patient answered "no" to the question "Have you recently felt down, depressed, or hopeless?", "Have you noticed less interest or pleasure in doing things?", "Do you have thoughts of harming or killing yourself?", "Are you here because you tried to hurt yourself?", "Have you ever tried to hurt yourself before today?", "Have you recently had thoughts about harming or killing others?" and "Do you have any dangerous items in your possession?". The patient reports their behavior. FALL RISK ASSESSMENT: Fall risk assessment completed. No fall risk identified. NUTRITIONAL RISK ASSESSMENT: The nutritional risk assessment revealed no deficiencies. FUNCTIONAL ASSESSMENT: Functional assessment: no impairments noted. LEARNING NEEDS ASSESSMENT: The learning needs assessment revealed no barriers. SKIN INTEGRITY ASSESSMENT: Skin integrity risk assessment completed. No skin integrity risk identified. --11:16 Milton Wells R.N. Interventions ID band on patient. To treatment room. --11:16 Milton Wells R.N. PHYSICAL ASSESSMENT GENERAL / NEURO / PSYCH: Alert. Appears in pain. Oriented X 4. RESPIRATORY: Respirations not labored. CVS: Capillary refill less than 2 seconds. SKIN: Skin is warm and dry. Skin tenderness present. Swelling on the left buttock- associated with erythema, tenderness and increased warmth. Increased warmth present. Erythema present. --11:18 Milton Wells R.N. ( Area of swelling and tenderness measures about 26cm across x 16cm. Outlined erythema with surgical pen.). --11:19 Milton Wells R.N. NURSING PROGRESS NOTES The plan of care for this patient has been created. Monitoring of patient in place. Patient gowned. Head of bed elevated. Reassurance given. Two patient identifiers checked. Call light placed in reach. Bed placed in lowest position. Patient ready for evaluation- chart flagged. ( Pt reports this is the 3rd time this abscess has returned to the same place. States he has a Hx of heroin use, last use over a month ago.). --11:19 Milton Wells R.N. 11:58 01/10/2017 Site #1 started via IV in the left forearm with an 20g angiocath, with aseptic technique and good blood return; four attempts. Blood drawn: rainbow set. Labeled in the presence of the patient and sent to the lab. Saline lock flushed with 10 mL saline. --11:59 Milton Wells R.N. 11:59 01/10/2017 Started bag #1 1000 mL IV Fluids IV NS (Saline); at 1000 mL/hr via site #1. Allergies verified and confirmed 5 rights. IV patency established. IV site checked: no pain, redness, or swelling. IV flushed thoroughly pre- and post-medication administration. Completed per protocol. --11:59 Milton Wells R.N. 12:01/10/2017 Morphine IVP 8 mg given. via site #1. Allergies verified, confirmed 5 rights and sedative warning given to the patient. IV patency established. IV site checked: no pain, redness, or swelling. IV flushed thoroughly pre- and post-medication administration. IVP given by RN. --12:01 Milton Wells R.N. ( Pt. reports little relief with the morphine. MD aware, new orders given.). --12:29 Ayala Fischer R.N. 12:34 01/10/2017 Dilaudid (HYDROmorphone HCl PF) IVP 2 mg given over 2 minute(s) via site #1. --12:34 Ayala Fischer R.N. 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 pt. medicated with [address] of Dilaudid in CT room. Tech aware of need to place O2 monitoring on patient when he returns.). --12:34 Ayala Fischer R.N. 12:38 01/10/2017 IV Fluids IV NS Discontinued: bag #1 infused. Total amount infused: 1000 mL. IV patency established. IV site checked: no pain, redness, or swelling. IV flushed thoroughly. --12:38 Ayala Fischer R.N. ( pt. back from CT, resting quietly. monitoring in place.). --13:11 Ayala Fischer R.N. 13:32 01/10/17. BP: 114/63. HR: 72. RR: 16. O2 saturation: 97% on room air. Temp: 98.1 F. Pain level now: 06/07. --13:33 Milton Welsl R.N. 13:26 01/10/2017 Morphine IVP Response: no adverse reaction symptoms are the same. --13:51 Milton Wells R.N. 13:26 01/10/2017 Dilaudid IVP Response: no adverse reaction symptoms are the same. --13:51 Milton Wells R.N. 13:43 01/10/2017 Dilaudid (HYDROmorphone HCl PF) IVP 2 mg given. via site #1. Allergies verified, confirmed 5 rights and sedative warning given to the patient and patient's family. IV patency established. IV site checked: no pain, redness, or swelling. IV flushed thoroughly pre- and post-medication administration. IVP given by RN. --13:43 Milton Wells R.N. 13:44 01/10/2017 PHENERGAN (Promethazine HCl) IVP 25 mg given. via site #1. Allergies verified and confirmed 5 rights. IV patency established. IV site checked: no pain, redness, or swelling. IV flushed thoroughly pre- and post-medication administration. IVP given by RN. --13:49 Milton Wells R.N. 13:46 01/10/2017 Started 1 gm of Vancomycin IVPB; at 200 mL/hr via site #1 via IV pump. Allergies verified and confirmed 5 rights. IV patency established. IV site checked: no pain, redness, or swelling. IV flushed thoroughly pre- and post-medication administration. --13:46 Milton Wells R.N. ( Pt remains painful, administered PRN pain medication per MD orders. Scheduled abx infusing, report called to [facility] at 1555, report given to GEGE Pollock). --13:54 Milton Wells R.N. 14:07 01/10/2017 PHENERGAN IVP Response: no adverse reaction pain is gone now. --14:07 Milton Wells R.N. ( Pt ready for DC, [facility] here to transport Pt to [place]. Report given to GEGE Beltrán. Pt stable, pain is controlled, VSS, antibiotics infusing upon disposition.). --14:14 Milton Wells R.N. 14:13 01/10/2017 Dilaudid IVP Response: no adverse reaction pain is improving. Symptoms have improved. --14:23 Milton Wells R.N. 14:21 01/10/2017 Vancomycin IVPB Continued: upon transfer at the rate of 200 mL/hr. 75 mL remaining bag #1. IV patency established. IV site checked: no pain, redness, or swelling. IV flushed thoroughly. --14:21 Milton Wells R.N. DISPOSITION / DISCHARGE 14:04 01/10/17. BP: 115/84. HR: 74. RR: 16. O2 saturation: 98% on room air. Temp: 97.9 F. Pain level now: 01/05. --14:07 Milton Wells R.N. The patient was discharged by the physician. He was discharged (Hospital). He left the Emergency Department via ambulance and on a stretcher. Transferred to [facility]. Summary of care provided to transport team and transfer facility. ( Pt unable to provide urine sample for urine drug screen. [place] aware. Vancomycin infusing upon disposition, [facility] ALS to infuse ordered Zosyn en route.). --14:19 Milton Wells R.N. Departure time: 14:22 Jan 10 2017. --14:22 Milton Wells R.N. Locked/Released at 01/10/2017 14:24 by Milton Wells R.N.
--- NOTE | 2017-01-10 13:20 | ED ORDER SUMMARY ---
..... Patient: LEONARD CASTILLO JR OrderSheet [facility] VisitID: [id number] [place] [address] 41y, M Registration Date/Time: 01/10/2017 ORDER SHEET Weight: 86.1 kg (stated) Allergies: Zofran, Codeine, Toradol GENERAL ORDERS: CT Pelvis w Cont (11:01/10/2017 Juan Handley) (Ack 11:26 Troy) (13:26 HERACLIOoerner) CBC w Diff Urgent (11:01/10/2017 Juan Handley) (Ack 11:26 Troy) (11:57 MCook R.N.) BMP Urgent (:01/10/2017 Juan Handley) (Ack 11:26 Troy) (11:57 MCook R.N.) Pulse oximeter (11:01/10/2017 Juan Handley) (Ack 11:26 Troy) (11:57 MCook R.N.) Urine Drug Screen Urgent (13:22 01/10/2017 Juan Handley) (Ack 13:23 Sergordang) MEDICATION ORDERS: Phenergan IV 25 mg (HIGH ALERT MEDICATION, NOW) (13:49 01/10/2017 Juan Handley) (13:49 MCook R.N.) IV FLUIDS: IV NS : initial bolus 1000 mL (1000 mL/hr), then none - for X1 (NOW) (11:01/10/2017 Juan Handley) (11:59 MCook R.N.) Morphine IV 8 mg (HIGH ALERT MEDICATION, NOW) (11:01/10/2017 Juan Handley) (12:01 MCook R.N.) Dilaudid IV 2 mg (HIGH ALERT MEDICATION, NOW) (12:29 01/10/2017 Juan Handley) (Ack 12:30 SStone R.N.) (12:34 SStone R.N.) Vancomycin IV 1 gm/200mL (NOW) (13:18 01/10/2017 Juan Handley) (13:46 MCook R.N.) Zosyn IV 4.5 gm/100mL (NOW) (13:19 01/10/2017 Juan Handley) Dilaudid IV 2 mg (once now. may repeat every 2 hours for pain > 5/10) (13:27 01/10/2017 Juan Handley) (13:43 Jacquelyn Rodriguez) ORDER SHEET NOTES: [Electronically signed by Milton Wells R.N. (14:24 01/10/2017)] [Electronically signed by Triston Palacios Dr. (17:22 01/10/2017)] [Electronically locked/signed by Milton Wells R.N. (14:24 01/10/2017)]
--- NOTE | 2017-01-10 13:20 | ED CLINICAL REPORT ---
Clinical Report - Physicians/Mid Levels [facility] [address] [place] [address] 01/10/2017 10:59 Patient: LEONARD CASTILLO JR Arrived- By private vehicle. Historian- patient. HISTORY OF PRESENT ILLNESS Chief Complaint: BOIL. This started past 3 days and is still present and worsening. It was gradual in onset and has been constant but is not gone now. It is described as painful. It has been located on the left buttocks. A cause has been identified (hx MRSA and IV drug abuse). No recent medication or insect bite. (reports trying keflex and bactrim). Similar symptoms previously: None. Recent medical care: The patient was seen recently by a health care provider. REVIEW OF SYSTEMS No fever, chills, difficulty breathing or abdominal pain. All systems otherwise negative, except as recorded above. PAST HISTORY See nurses notes. Tetanus immunization status is up-to-date. Medications: Ibuprofen Oral. Big white pill - antibiotic. Keflex Oral. Allergies: Codeine. Toradol. Zofran. SOCIAL HISTORY Never smoker. History of drug use. No alcohol use. Recent travel. Is a local resident. ADDITIONAL NOTES The nursing notes have been reviewed. PHYSICAL EXAM Vital Signs: 01/10/2017 11:13 BP: 148/60. HR: 83. RR: 16. O2 saturation: 95%. Temp: 97.8 F. Pain level now: 8/10. Blood pressure normal. Oxygen saturation not normal. Appearance: Alert. Oriented X3. No acute distress. Eyes: Pupils equal, round and reactive to light. Conjunctivae and eyelids normal. ENT: Ears normal. Nose normal. Pharynx normal. Neck: Neck supple. CVS: Normal heart rate and rhythm. Heart sounds normal. Respiratory: No respiratory distress. Breath sounds normal. Chest nontender. Abdomen: Nontender. No organomegaly. Skin: Large abscess with fluctuance (left buttocks. no creputus. appropriately tender. no perennial invovlement.). Extremities: Normal external inspection. Extremities nontender. LABS, X-RAYS, AND EKG Chest CT: (PROCEDURE: CT PELVIS WITH CONTRAST INDICATION: Left buttock inflammation. Initial encounter. TECHNIQUE: Following 100 ml Isovue 300 intravenously, axial scans obtained through the pelvis with coronal and sagittal re-formations. COMPARISON: CT abdomen/pelvis 12/10/2012 FINDINGS: There is an 11.6 x 5 x 11.2 cm left buttock subcutaneous fluid collection with adjacent inflammatory changes suggestive of an abscess. Underlying musculature is unremarkable. There is mild left inguinal adenopathy. There is no pelvic mass, free fluid or free air. No suspicious osseous lesions. IMPRESSION: 1. Left buttock subcutaneous abscess (11.6 x 5 x 11.2 cm).). The study was independently viewed by me and interpreted by the radiologist. The study was discussed with the radiologist (via phone). Laboratory Tests: CBC w Diff: (JAELYN: 01/10/2017 12:00) ( MsgRcvd 01/10/2017 12:58) Final results Test Result Flag Units (Reference) WHITE BLOOD COUNT 12.4 H K/uL (4.5-11.5) RED BLOOD COUNT 4.25 L M/uL (4.50-5.90) HEMOGLOBIN 8.6 L gm/dL (13.5-17.5) HEMATOCRIT 27.3 L % (41.0-53.0) MEAN CELL VOLUME 64 L fL (80-100) MEAN CORPUSCULAR HGB 20 L pg (26-34) MEAN CORPUSCULAR HGB CONC 31 g/dL (31-37) RED CELL DISTRIBUTION WIDTH 18.8 H % (11.6-14.8) PLATELET COUNT 669 H K/uL (150-400) NEUTROPHIL % 76.9 H % (50-75) LYMPH % 16.4 L % (25-40) MONO % 6.0 % (3-14) EOSINOPHIL % 0.4 % (0-4) BASOPHIL % 0.3 % (0-2) RBC MORPHOLOGY 2+ HYPOCHROMASIA~~2+ MICROCYTOSIS~~1+ POIKILOCYTOSIS BMP: (JAELYN: 01/10/2017 12:00) ( MsgRcvd 01/10/2017 12:22) Final results Test Result Flag Units (Reference) GLUCOSE 105 mg/dL (70-110) BUN 12 mg/dL (7-18) CREATININE 1.0 mg/dL (0.6-1.3) Estimated GFR >60 mL/min Estimated GFR- >60 mL/min Note: Persistent reduction over 3 months in eGFR<60 mL/min/1.73 m2 defines CKD. Patients with eGFR values>=60 mL/min/1.73 m2 may also have CKD if evidence ofpersistent proteinuria. Additional information may be foundat www.kidney.org. SODIUM 135 L mmol/L (136-145) POTASSIUM 4.2 mmol/L (3.5-5.1) CHLORIDE 101 mmol/L (98-107) CARBON DIOXIDE 26 mmol/L (21-32) CALCIUM 8.4 L mg/dL (8.5-10.1) . PROGRESS AND PROCEDURES Course of Care: the patient is a pleasant 41-year-old male with past medical history significant for substance abuse presented for evaluation of abscess to the left buttocks. The area involved is significantly large. Did not feel bedside emergency department and drainage of the abscess would betolerated well by the patient. Also would be concerned aboutproper drainage of the abscess given the size Also concerned about the depth and other structures involved with the abscess. Patient will be evaluated with CT scan of the pelvis with contrast. Patient is agreeable to treatment plan. Pain medication has been ordered. Workup is significant for slightly elevated white blood cell count at 12.4. CT scan of the pelvis indicates patient has a large abscess located in the subcutaneous tissue. No deeper involvement noted. Because of the significant size of the abscess noted on the CT scan, patient will need surgicaldrainage of the abscess. Had discussion with patient was agreeable to the treatment and plan of operation room drainage of abscess and 90 as well as admission to the hospital. Unfortunately this time the or is down. Patient will need to be transferred to our associated hospital at [facility]. Spoke with internal surgeon Dr. Anderson who will accept the patient and would like patient to be admitted under the medicine service. Spoke with Dr coello who will accept the patient. Recommended antibiotics and urine drug screen. These tests have been ordered. additional pain medication has been given here in the emergency department. Patient is nontoxic and in no acute distress. Patientdoes appear much more comfortable. Transverse chlorinated through EMS. Patient will be transferred. Prior to patient's apart from the emergency department is noted to be resting in bed and in no acute distress. Patient is stable for transport. Critical care performed (45 minutes). Time is exclusive of separately billable procedures. Time includes: direct patient care, patient reassessment, coordination of patient care, review of patient's medical records, medical consultation and documentation of patient care. Consult obtained from surgery. Disposition: Benefits, risks and alternatives to transfer explained to patient. Transferred to [facility]. CLINICAL IMPRESSION Cellulitis of the left buttocks, acute abscess subcutaneous left buttocks acute history of substance abuse leukocytosis acute nonspecific. (Electronically signed by Triston Palacios Dr. 01/10/2017 17:22)
--- NOTE | 2017-01-10 17:22 | ED DISCHARGE INSTRUCTIONS ---
Patient: LEONARD CASTILLO General Instructions [facility] VisitID: [id number] [address] [place] [place] [address] 41y, M Registration Date/Time: 01/10/2017 Cellulitis of the left buttocks, acute abscess subcutaneous left buttocks acute history of substance abuse leukocytosis acute nonspecific. (Electronically signed by Triston Palacios Dr. 01/10/2017 17:22)
--- NOTE | 2017-01-10 17:22 | ED MAR SUMMARY ---
..... Medication Administration Record [facility] [address] [address] Patient: LEONARD CASTILLO Visit ID: [id number] 41y, M Weight: 86.1 kg Height/Length: 71 in BMI: 26.5 ALLERGIES: Toradol, Codeine, Zofran Start 11:59 01/10/2017 Milton Wells R.N., Stop 12:38 01/10/2017 Ayala Fischer R.N. Medication Administered: IV NS (SALINE), Dose: IV Fluids, Rate: 1000 mL/hr, Dispensed: 1000 mL bag, Site: #1 left forearm. Medication Ordered: IV NS : initial bolus 1000 mL (1000 mL/hr), then none - for X1 (NOW). Given 12:01 01/10/2017 Milton Wells R.N. Medication Administered: MORPHINE [IVP], Dose: 8 mg IVP, Site: #1 left forearm. Medication Ordered: Morphine IV 8 mg (HIGH ALERT MEDICATION, NOW). Given 12:34 01/10/2017 Ayala Fischer R.N. Medication Administered: DILAUDID [IVP] (HYDROMORPHONE HCL PF), Dose: 2 mg IVP over 2 minute(s), Site: #1 left forearm. Medication Ordered: Dilaudid IV 2 mg (HIGH ALERT MEDICATION, NOW). Given 13:43 01/10/2017 Milton Wells R.N. Medication Administered: DILAUDID [IVP] (HYDROMORPHONE HCL PF), Dose: 2 mg IVP, Site: #1 left forearm. Medication Ordered: Dilaudid IV 2 mg (once now. may repeat every 2 hours for pain > 5/10). Given 13:44 01/10/2017 Milton Wells R.N. Medication Administered: PHENERGAN [IVP] (PROMETHAZINE HCL), Dose: 25 mg IVP, Site: #1 left forearm. Medication Ordered: Phenergan IV 25 mg (HIGH ALERT MEDICATION, NOW). Start 13:46 01/10/2017 Milton Wells R.N., Continued Upon Transfer 14:21 01/10/2017 Milton Wells R.N. Medication Administered: VANCOMYCIN [IVPB], Dose: 1 gm IVPB, Rate: 200 mL/hr, Site: #1 left forearm. Medication Ordered: Vancomycin IV 1 gm/200mL (NOW).
--- NOTE | 2017-01-10 17:22 | ED MED RECONCILIATION SUMMARY ---
Patient: LEONARD CASTILLO JR Medication Reconciliation Report [facility] VisitID: [id number] [address] [place] [address] 41y, M Registration Date/Time: 01/10/2017 Weight: 86.1 kg Height/Length: 71 in. BMI: 26.5 ALLERGIES: Codeine, Toradol, Zofran The patient's Home Medications are listed below: THE FOLLOWING MEDICATIONS NEED TO BE RECONCILED: Big white pill - antibiotic Ibuprofen Oral Keflex Oral The source(s) of the original Home Medication information: patient The following Medications were given to the patient in the Emergency Department: IV NS IV Fluids bolus 0, then 1000 mL/hr, administered: 01/10/2017 11:59:00 AM Morphine [IVP] IVP 8 mg, administered: 01/10/2017 12:01:00 PM Dilaudid [IVP] IVP 2 mg, administered: 01/10/2017 12:34:00 PM Dilaudid [IVP] IVP 2 mg, administered: 01/10/2017 1:43:00 PM Vancomycin [IVPB] IVPB bolus 0, then 1 gm 200 mL/hr, administered: 01/10/2017 1:46:00 PM PHENERGAN [IVP] IVP 25 mg, administered: 01/10/2017 1:44:00 PM The following Medications were prescribed to the patient: None.
--- NOTE | 2017-01-10 17:22 | ED MED RECONCILIATION SUMMARY ---
Patient: LEONARD CASTILLO JR Medication Reconciliation Report [facility] VisitID: [id number] [address] [place] [address] 41y, M Registration Date/Time: 01/10/2017 Weight: 86.1 kg Height/Length: 71 in. BMI: 26.5 ALLERGIES: Codeine, Toradol, Zofran The patient's Home Medications are listed below: THE FOLLOWING MEDICATIONS NEED TO BE RECONCILED: Big white pill - antibiotic Ibuprofen Oral Keflex Oral The source(s) of the original Home Medication information: patient The following Medications were given to the patient in the Emergency Department: IV NS IV Fluids bolus 0, then 1000 mL/hr, administered: 01/10/2017 11:59:00 AM Morphine [IVP] IVP 8 mg, administered: 01/10/2017 12:01:00 PM Dilaudid [IVP] IVP 2 mg, administered: 01/10/2017 12:34:00 PM Dilaudid [IVP] IVP 2 mg, administered: 01/10/2017 1:43:00 PM Vancomycin [IVPB] IVPB bolus 0, then 1 gm 200 mL/hr, administered: 01/10/2017 1:46:00 PM PHENERGAN [IVP] IVP 25 mg, administered: 01/10/2017 1:44:00 PM The following Medications were prescribed to the patient: None.
--- NOTE | 2017-01-10 17:22 | ED DISCHARGE INSTRUCTIONS ---
Patient: LEONARD CASTILLO General Instructions [facility] VisitID: [id number] [address] [place] [address] 41y, M Registration Date/Time: 01/10/2017 Cellulitis of the left buttocks, acute abscess subcutaneous left buttocks acute history of substance abuse leukocytosis acute nonspecific. (Electronically signed by Triston Palacios Dr. 01/10/2017 17:22)
--- NOTE | 2017-01-10 17:22 | ED MAR SUMMARY ---
..... Medication Administration Record [facility] [address] [place] [address] Patient: LEONARD CASTILLO Visit ID: [id number] 41y, M Weight: 86.1 kg Height/Length: 71 in BMI: 26.5 ALLERGIES: Toradol, Codeine, Zofran Start 11:59 01/10/2017 Milton Wells R.N., Stop 12:38 01/10/2017 Ayala Fischer R.N. Medication Administered: IV NS (SALINE), Dose: IV Fluids, Rate: 1000 mL/hr, Dispensed: 1000 mL bag, Site: #1 left forearm. Medication Ordered: IV NS : initial bolus 1000 mL (1000 mL/hr), then none - for X1 (NOW). Given 12:01 01/10/2017 Milton Wells R.N. Medication Administered: MORPHINE [IVP], Dose: 8 mg IVP, Site: #1 left forearm. Medication Ordered: Morphine IV 8 mg (HIGH ALERT MEDICATION, NOW). Given 12:34 01/10/2017 Ayala Fischer R.N. Medication Administered: DILAUDID [IVP] (HYDROMORPHONE HCL PF), Dose: 2 mg IVP over 2 minute(s), Site: #1 left forearm. Medication Ordered: Dilaudid IV 2 mg (HIGH ALERT MEDICATION, NOW). Given 13:43 01/10/2017 Milton Wells R.N. Medication Administered: DILAUDID [IVP] (HYDROMORPHONE HCL PF), Dose: 2 mg IVP, Site: #1 left forearm. Medication Ordered: Dilaudid IV 2 mg (once now. may repeat every 2 hours for pain > 5/10). Given 13:44 01/10/2017 Milton Wells R.N. Medication Administered: PHENERGAN [IVP] (PROMETHAZINE HCL), Dose: 25 mg IVP, Site: #1 left forearm. Medication Ordered: Phenergan IV 25 mg (HIGH ALERT MEDICATION, NOW). Start 13:46 01/10/2017 Milton Wells R.N., Continued Upon Transfer 14:21 01/10/2017 Milton Wells R.N. Medication Administered: VANCOMYCIN [IVPB], Dose: 1 gm IVPB, Rate: 200 mL/hr, Site: #1 left forearm. Medication Ordered: Vancomycin IV 1 gm/200mL (NOW).
== END 2017-01-10 14:22 | disposition short-term general hospital (02) ==
LOC: ED SRH 10:58
DX: L02.31 Cutaneous abscess of buttock (principal); L03.317 Cellulitis of buttock; D72.829 Elevated white blood cell count, unspecified; Z86.14 Personal history of Methicillin resistant Staphylococcus aureus infection; Z87.898 Personal history of other specified conditions; Z79.2 Long term (current) use of antibiotics; Z79.1 Long term (current) use of non-steroidal anti-inflammatories (NSAID); Z88.5 Allergy status to narcotic agent; Z88.8 Allergy status to other drugs, medicaments and biological substances
CPT/HCPCS: 90047; 95059

== ENCOUNTER 2017-03-15 17:03 | Emergency (ER) | payer OTHER ==
--- NOTE | 2017-03-15 17:24 | ED NURSING NOTES ---
Clinical Report - Nurses [facility] [address] [place] [address] 03/15/2017 17:03 Patient: LEONARD CASTILLO JR TRIAGE Triage time 17:Mar 15 2017. Chief Complaint: (abscess to left buttocks, pt "I popped it" FINANCIAL SALES ADVISOR at bedside pulled pts dressing off and wound immediately began draining. pt states last heroin use october). Alert. No acute distress. SEPSIS SCREEN: Sepsis Screen: negative. Infection suspected/documented. MAY COMA SCORE: May Coma Scale: 15- eyes open spontaneously (4); best verbal response- oriented x 4 (5); best motor response- obeys commands (6). --17:15 Juan David Anand R.N. 17:09 03/15/17. BP: 126/64. HR: 78. RR: 17. O2 saturation: 98%. Temp: 98.1 F. Pain level now: 04/07. --17:15 Juan David Anand R.N. Weight: 68 kg stated. Height/Length: 70 inches Per Patient. BMI: 21.5. --17:08 Juan David Anand R.N. Medications None. --17:13 Juan David Anand R.N. Medication/allergy information source: the patient. --17:15 Juan David Anand R.N. Allergies Zofran. --17:13 Juan David Anand R.N. Toradol. --17:13 Juan David Anand R.N. Codeine. --17:13 Juan David Anand R.N. History Arrived by private vehicle. Historian: patient. 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 PAST MEDICAL HX: Immunizations: up-to-date. SOCIAL HX: Never smoker. Occasional alcohol use. No drug use. No infectious disease exposure. ABUSE ASSESSMENT: No report of abuse. SELF HARM ASSESSMENT: A self harm assessment was performed. The patient answered "no" to the question "Have you recently felt down, depressed, or hopeless?", "Have you noticed less interest or pleasure in doing things?", "Do you have thoughts of harming or killing yourself?", "Are you here because you tried to hurt yourself?", "Have you ever tried to hurt yourself before today?", "Have you recently had thoughts about harming or killing others?" and "Do you have any dangerous items in your possession?". FALL RISK ASSESSMENT: Fall risk assessment completed. No fall risk identified. NUTRITIONAL RISK ASSESSMENT: The nutritional risk assessment revealed no deficiencies. FUNCTIONAL ASSESSMENT: Functional assessment: no impairments noted. LEARNING NEEDS ASSESSMENT: The learning needs assessment revealed no barriers. SKIN INTEGRITY ASSESSMENT: Skin integrity risk assessment completed. No skin integrity risk identified. --17:15 Juan David Anand R.N. PROBLEMS: Leukocytosis. Lifestyle / Substance Problems. Abscess. Substance Abuse. Nephrolithiasis. --17:14 Juan David Anand R.N. ADDITIONAL SURGERIES: Cholecystectomy. I&D. --17:14 Juan David Anand R.N. Interventions ID and allergy band on patient. --17:15 Juan David Anand R.N. PHYSICAL ASSESSMENT Ambulatory to room. Patient gowned. GENERAL / NEURO / PSYCH: Alert. Oriented X 4. Appears in no acute distress. HEENT: Pupils equal, round and reactive to light. RESPIRATORY: Respirations not labored. Breath sounds within normal limits. CVS: Capillary refill less than 2 seconds. Pulses within normal limits. GI / : Abdomen soft and nontender. SKIN: Skin is warm and dry. Normal skin turgor. ( pt with open wound to left buttocks, FINANCIAL SALES ADVISOR at beside draining). --17:16 Juan David Anand R.N. NURSING PROGRESS NOTES Patient identifiers checked. Call light placed in reach. Side rails up x 1. Bed placed in lowest position. Brakes of bed on. --17:16 Juan David Anand R.N. DISPOSITION / DISCHARGE No learning barriers present. Discharge instructions provided and reviewed with the patient. Reviewed medication(s) side effects and course information. Prescription(s) given to the patient. Patient verbalized understanding. Written instructions provided in Kyrgyz. The patient was discharged by the nurse practitioner. He was discharged home. He left the Emergency Department ambulatory and via private vehicle. Patient driving. ( pt given rx and f/u, pt supplied with dressing changes and was instructed to not put an occlusive dressing on wound.). --17:49 Juan David Anand R.N. 17:47 03/15/17. BP: 119/67. HR: 72. RR: 15. O2 saturation: 99%. Temp: 98 F. Pain level now: 04/07. --17:49 Juan David Anand R.N. Locked/Released at 03/15/2017 17:54 by Juan David Anand R.N.
--- NOTE | 2017-03-15 17:24 | ED ORDER SUMMARY ---
..... Patient: LEONARD CASTILLO JR OrderSheet [facility] VisitID: [id number] [address] [place] [address] 41y, M Registration Date/Time: 03/15/2017 ORDER SHEET Weight: 68.0 kg (stated) Allergies: Zofran, Toradol, Codeine GENERAL ORDERS: Culture, Wound Deep (Buttock) (L buttock) Urgent (17:18 03/15/2017 HBivens A.R.N.P.) (Ack 17:19 IJurca ER Tech1) (17:41 KPavaishali-Jessica R.N.) Dress Wounds (17:24 03/15/2017 HBivens A.R.N.P.) (17:41 KPavaishali-Bamchan R.N.) MEDICATION ORDERS: IV FLUIDS: ORDER SHEET NOTES: [Electronically signed by Juan David Anand R.N. (17:54 03/15/2017)] [Electronically signed by Huma Quan.R.N.P. (18:11 03/15/2017)] [Electronically locked/signed by Juan David Anand R.N. (17:54 03/15/2017)]
--- NOTE | 2017-03-15 17:24 | ED ORDER SUMMARY ---
..... Patient: LEONARD CASTILLO JR OrderSheet [facility] VisitID: [id number] [address] [place] [address] 41y, M Registration Date/Time: 03/15/2017 ORDER SHEET Weight: 68.0 kg (stated) Allergies: Zofran, Toradol, Codeine GENERAL ORDERS: Culture, Wound Deep (Buttock) (L buttock) Urgent (17:18 03/15/2017 HBivens A.R.N.P.) (Ack 17:19 IJurca ER Tech1) (17:41 KPavaishali-Jessica R.N.) Dress Wounds (17:24 03/15/2017 HBivens A.R.N.P.) (17:41 KPavaishali-Bamchan R.N.) MEDICATION ORDERS: IV FLUIDS: ORDER SHEET NOTES: [Electronically signed by Juan David Anand R.N. (17:54 03/15/2017)] [Electronically signed by Huma Quan.R.N.P. (18:11 03/15/2017)] [Electronically locked/signed by Juan David Anand R.N. (17:54 03/15/2017)]
--- NOTE | 2017-03-15 17:24 | ED NURSING NOTES ---
Clinical Report - Nurses [facility] [address] [place] [address] 03/15/2017 17:03 Patient: LEONADR CASTILLO JR TRIAGE Triage time 17:Mar 15 2017. Chief Complaint: (abscess to left buttocks, pt "I popped it" BEAM DYER at bedside pulled pts dressing off and wound immediately began draining. pt states last heroin use october). Alert. No acute distress. SEPSIS SCREEN: Sepsis Screen: negative. Infection suspected/documented. MAY COMA SCORE: May Coma Scale: 15- eyes open spontaneously (4); best verbal response- oriented x 4 (5); best motor response- obeys commands (6). --17:15 Juan David Anand R.N. 17:09 03/15/17. BP: 126/64. HR: 78. RR: 17. O2 saturation: 98%. Temp: 98.1 F. Pain level now: 04/07. --17:15 Juan David Anand R.N. Weight: 68 kg stated. Height/Length: 70 inches Per Patient. BMI: 21.5. --17:08 Juan David Anand R.N. Medications None. --17:13 Juan David Anand R.N. Medication/allergy information source: the patient. --17:15 Juan David Anand R.N. Allergies Zofran. --17:13 Juan David Anand R.N. Toradol. --17:13 Juan David Anand R.N. Codeine. --17:13 Juan David Anand R.N. History Arrived by private vehicle. Historian: patient. 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 PAST MEDICAL HX: Immunizations: up-to-date. SOCIAL HX: Never smoker. Occasional alcohol use. No drug use. No infectious disease exposure. ABUSE ASSESSMENT: No report of abuse. SELF HARM ASSESSMENT: A self harm assessment was performed. The patient answered "no" to the question "Have you recently felt down, depressed, or hopeless?", "Have you noticed less interest or pleasure in doing things?", "Do you have thoughts of harming or killing yourself?", "Are you here because you tried to hurt yourself?", "Have you ever tried to hurt yourself before today?", "Have you recently had thoughts about harming or killing others?" and "Do you have any dangerous items in your possession?". FALL RISK ASSESSMENT: Fall risk assessment completed. No fall risk identified. NUTRITIONAL RISK ASSESSMENT: The nutritional risk assessment revealed no deficiencies. FUNCTIONAL ASSESSMENT: Functional assessment: no impairments noted. LEARNING NEEDS ASSESSMENT: The learning needs assessment revealed no barriers. SKIN INTEGRITY ASSESSMENT: Skin integrity risk assessment completed. No skin integrity risk identified. --17:15 Juan David Anand R.N. PROBLEMS: Leukocytosis. Lifestyle / Substance Problems. Abscess. Substance Abuse. Nephrolithiasis. --17:14 Juan David Anand R.N. ADDITIONAL SURGERIES: Cholecystectomy. I&D. --17:14 Juan David Anand R.N. Interventions ID and allergy band on patient. --17:15 Juan David Anand R.N. PHYSICAL ASSESSMENT Ambulatory to room. Patient gowned. GENERAL / NEURO / PSYCH: Alert. Oriented X 4. Appears in no acute distress. HEENT: Pupils equal, round and reactive to light. RESPIRATORY: Respirations not labored. Breath sounds within normal limits. CVS: Capillary refill less than 2 seconds. Pulses within normal limits. GI / : Abdomen soft and nontender. SKIN: Skin is warm and dry. Normal skin turgor. ( pt with open wound to left buttocks, BEAM DYER at beside draining). --17:16 Juan David Anand R.N. NURSING PROGRESS NOTES Patient identifiers checked. Call light placed in reach. Side rails up x 1. Bed placed in lowest position. Brakes of bed on. --17:16 Juan David Anand R.N. DISPOSITION / DISCHARGE No learning barriers present. Discharge instructions provided and reviewed with the patient. Reviewed medication(s) side effects and course information. Prescription(s) given to the patient. Patient verbalized understanding. Written instructions provided in Persian. The patient was discharged by the nurse practitioner. He was discharged home. He left the Emergency Department ambulatory and via private vehicle. Patient driving. ( pt given rx and f/u, pt supplied with dressing changes and was instructed to not put an occlusive dressing on wound.). --17:49 Juan David Anand R.N. 17:47 03/15/17. BP: 119/67. HR: 72. RR: 15. O2 saturation: 99%. Temp: 98 F. Pain level now: 04/07. --17:49 Juan David Anand R.N. Locked/Released at 03/15/2017 17:54 by Juan David Anand R.N.
--- NOTE | 2017-03-15 17:24 | ED CLINICAL REPORT ---
Clinical Report - Physicians/Mid Levels [facility] [address] [place] [address] 03/15/2017 17:03 Patient: LEONARD CASTILLO JR Time Seen: 1705; upon arrival, initial patient contact, initial documentation, patient care assumed. Arrived- By private vehicle. Historian- patient. HISTORY OF PRESENT ILLNESS Chief Complaint: BOIL. This started about 2 - 3 days ago and is still present but is improving. (after it was popped today). Not itchy or burning. It is described as painful. It has been located on the left buttocks. A possible cause has been identified (iv drug use - heroin). Similar symptoms previously: Chronically, worse. Recent medical care: Not recently seen/assessed. REVIEW OF SYSTEMS No fever or difficulty breathing. All systems otherwise negative, except as recorded above. PAST HISTORY See nurses notes. PROBLEMS: Leukocytosis. Lifestyle / Substance Problems. Abscess. Substance Abuse. Nephrolithiasis. --17:14 Juan David Anand RAna Luisa. ADDITIONAL SURGERIES: Cholecystectomy. I&D. --17:14 Juan David Anand RAna Luisa. SOCIAL HISTORY Never smoker. Occasional alcohol use. 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 No recent travel. Is a local resident. FAMILY HISTORY Negative. ADDITIONAL NOTES The nursing notes have been reviewed with agreement regarding the chief complaint, HPI, ROS, PMH and patient medications and allergies. PHYSICAL EXAM Vital Signs: 03/15/2017 17:09 BP: 126/64. HR: 78. RR: 17. O2 saturation: 98%. Temp: 98.1 F. Pain level now: 6/10. Have been reviewed as normal and appear to be correct. Appearance: Alert. Oriented X3. No acute distress. Anxious. (pt appears strung out or under the influence, but says he has been sober since Oct.). Eyes: Pupils equal, round and reactive to light. Conjunctivae and eyelids normal. Neck: Neck supple. Respiratory: No respiratory distress. Skin: Skin warm and dry. Abnormal skin color. No rash. Normal skin turgor. Single medium abscess with fluctuance, pointing, drainage and cellulitis to left buttock (open abscess, hole approx 1.5 cm wide and actively draining pus and blood). Extremities: Normal external inspection. Extremities nontender. Neuro: Oriented X 3. No motor deficit. No sensory deficit. PROGRESS AND PROCEDURES PROCEDURES (area excised, lots of pus return, culture obtained). Course of Care: 17:35 03/15/17. pt has azra for some narcs and #11 er visits, see report for full details. Patient counseled in person regarding the patient's stable condition and diagnosis. Differential Diagnosis: Other possible considerations: substance abuse, abscess, mrsa, cellulitis. Above considerations are based on history and physical exam. Differential diagnosis was discussed with patient. Disposition: Discharged home in good and improved condition (17:24). Condition: good and stable. CLINICAL IMPRESSION Single deep abscess (L buttock). INSTRUCTIONS Warnings: GENERAL WARNINGS: Return or contact your physician immediately if your condition worsens or changes unexpectedly, if not improving as expected, or if other problems arise. Specifically return if problem worsens. Prescription Medications: Bactrim DS 800 mg / 160 mg: take 1 tablet orally every 12 hours for 10 days. No refill. Follow-up: Follow up with your doctor in about two days for wound check. Call for an appointment. Summary of care provided to patient. Understanding of the discharge instructions verbalized by patient. (Electronically signed by Huma Quan A.R.N.P. 03/15/2017 18:11)
--- NOTE | 2017-03-15 18:12 | ED MAR SUMMARY ---
..... Medication Administration Record [facility] [address], [place] [id number] Patient: LEONARD CASTILLO Visit ID: [id number] 41y, M Weight: 68.0 kg Height/Length: 70 in BMI: 21.5 ALLERGIES: Codeine, Toradol, Zofran
--- NOTE | 2017-03-15 18:12 | ED DISCHARGE INSTRUCTIONS ---
Patient: LEONARD CASTILLO JR General Instructions [facility] VisitID: [id number] [place] [address] 41y, M Registration Date/Time: 03/15/2017 Single deep abscess (L buttock). INSTRUCTIONS Warnings: GENERAL WARNINGS: Return or contact your physician immediately if your condition worsens or changes unexpectedly, if not improving as expected, or if other problems arise. Specifically return if problem worsens. Prescription Medications: Bactrim DS 800 mg / 160 mg: take 1 tablet orally every 12 hours for 10 days. No refill. Follow-up: Follow up with your doctor in about two days for wound check. Call for an appointment. Summary of care provided to patient. Understanding of the discharge instructions verbalized by patient. ADDITIONAL INFORMATION Abscess (Antibiotic Treatment Only) An abscess (sometimes called a boil) occurs when bacteria get trapped under the skin and begin to grow. Pus forms inside the abscess as the body responds to the bacteria. An abscess can occur with an insect bite, ingrown hair, blocked oil gland, pimple, cyst, or puncture wound. In the early stages, redness and tenderness are the only symptoms. Sometimes, this stage can be treated with antibiotics alone. If the abscess does not respond to antibiotic treatment, it will need to be drained with a small cut, under local anesthesia. Home care The following will help you care for your abscess at home: Soak the wound in hot water or apply hot packs (small towel soaked in hot water) to the area for 20 minutes at a time. Do this three to four times a day. Apply antibiotic cream or ointment onto the skin 3-4 times a day, unless something else was prescribed. Some ointments include an antibiotic plus a local pain reliever. If your doctor prescribed antibiotics, do not stop taking this medication until you have finished the prescribed course or the doctor tells you to stop. You may use an cedp-rba-jrjkvih pain medication to control pain, unless another pain medicine was prescribed. If you have chronic liver or kidney disease or ever had a stomach ulcer or GI bleeding, talk with your doctor before using these any of these. Follow-up care Follow up with your health care provider as advised by our staff. Look at your wound each day for the signs of worsening infection listed below. When to seek medical care Get prompt medical attention if any of the following occur: An increase in redness or swelling Red streaks in the skin leading away from the abscess An increase in local pain or swelling Fever of 100.4F (38C) or higher, or as directed by your health care provider Pus or fluid coming from the abscess Cellulitis You have an infection of the skin known as cellulitis. This usually starts with a scrape, cut, insect bite, blister or other opening in the skin which becomes infected. This is a serious condition. It must be watched closely to be sure the infection is not spreading. With antibiotic treatment, the size of the red area will gradually shrink in size until the skin returns to normal. This will take 7-10 days. The red area should never increase in size once the antibiotic medicine has been started. Occasionally, an infection will be resistant to one antibiotic and another one will have to be used. Home Care: 1) Limit the use of the affected part, since excess movement can cause the infection to spread. 2) If the infection is on your leg, walk as little as possible during the first few days of the treatment. Keep your leg elevated while sitting. This will reduce swelling. 3) Take all of the antibiotic medicine exactly as directed until it is gone. Be careful not to miss any doses, especially during the first seven days. Follow Up with your doctor or this facility as directed. Check the infected area daily for the warning signs listed below. Get Prompt Medical Attention if any of the following occur: -- Spreading area of redness -- Increasing swelling or pain -- Appearance of pus or drainage -- Fever over 100.4 F (38.0 C) oral, or over 101.4 F (38.6 C) rectal, after two days on antibiotics Staph Infection (MRSA) "Staph" is the short name for the common bacteria called "staphylococcus aureus". Staph bacteria are often present on the skin without causing an infection. If it gets under the skin an infection occurs. This causes redness, tenderness, swelling and sometimes fluid drainage. MRSA stands for "Methicillin-Resistant Staph Aureus". Unlike a common staph infection, MRSA bacteria are resistant to the usual antibiotics and harder to treat. Also, MRSA is more toxic than common staph bacteria. It can spread quickly throughout the body and cause a life-threatening illness. MRSA is spread to others by direct physical contact with the bacteria. MRSA can also be transmitted from items contaminated by a person who has the bacteria, such as bandages, towels, bed sheets, or sports equipment. It is not spread through the air. Once you have a MRSA skin infection, you are at risk of having it recur in the future. If MRSA infection is suspected, the doctor may take a wound culture to confirm the diagnosis. Any abscess will be drained. One or sometimes two antibiotics that work against MRSA will be prescribed. Home Care: 1) Take any antibiotics prescribed exactly as directed until they are gone. 2) Follow the same washing procedures as outlined for Household Members below. 3) Keep draining wounds covered with clean, dry bandages. Change dressings as they become soiled. 4) You and those in contact with you should wash their hands frequently with soap and warm water or use an alcohol-based hand fowl blood tester. Do this after each time you change the bandage or touch the wound. 5) Avoid sharing personal items such as towels, washcloths, razors, clothing, or uniforms. Wash soiled sheets, towels or clothes in hot water with laundry detergent. Use an automatic clothes dryer set on high to kill any remaining bacteria. 6) Remove any artificial nails and nail russian. 7) If you use a gym, wipe down equipment before and after each use. Treatment Of Household Members If you have been diagnosed with possible MRSA infection, those living with you are at higher risk of carrying the bacteria on their skin or in their nose, even if there is no sign of infection. Bacteria must be removed from the skin of all household members (including you) at the same time, so that it is not passed back and forth. Advise them to remove the bacteria as follows: Wash your whole body (scalp to toes) daily for five days with Hibiclens (chlorhexidine). Scrub fingernails with a brush for one minute twice a day. If any skin infections are present (boils, abscess, infected cut) these must be treated by a doctor. Washing alone will not treat a MRSA infection. Clean counter tops and children's toys; do not share personal items such as toothbrush and razors. It is okay to share glasses, plates, utensils. If antibiotic ointment was prescribed use it as directed. Follow Up with your doctor or as advised by our staff. If a wound culture was taken, call as directed in two days to obtain the results. If the culture result is positive for MRSA, tell medical personnel in the future that you were treated for this type of infection. Get Prompt Medical Attention if any of the following occur: -- Increasing redness, swelling or pain -- Red streaks in the skin around the wound -- Weakness or dizziness -- New appearance of pus or drainage from the wound -- New fever over 100.4 F (38.0 C) Sulfamethoxazole, Trimethoprim Oral tablet What is this medicine? SULFAMETHOXAZOLE; TRIMETHOPRIM or SMX-TMP (suhl fuh meth OK nisha zohl; trye METH oh prim) is a combination of a sulfonamide antibiotic and a second antibiotic, trimethoprim. It is used to treat or prevent certain kinds of bacterial infections. It will not work for colds, flu, or other viral infections. How should I use this medicine? Take this medicine by mouth with a full glass of water. Follow the directions on the prescription label. Take your medicine at regular intervals. Do not take it more often than directed. Do not skip doses or stop your medicine early. Talk to your tool honing machine set up operator regarding the use of this medicine in children. Special care may be needed. This medicine has been used in children as young as 2 months of age. What side effects may I notice from receiving this medicine? Side effects that you should report to your doctor or health healthcare sales representative as soon as possible: allergic reactions like skin rash or hives, swelling of the face, lips, or tongue breathing problems fever or chills, sore throat irregular heartbeat, chest pain joint or muscle pain pain or difficulty passing urine red pinpoint spots on skin redness, blistering, peeling or loosening of the skin, including inside the mouth unusual bleeding or bruising unusually weak or tired yellowing of the eyes or skin Side effects that usually do not require medical attention (report to your doctor or health healthcare sales representative if they continue or are bothersome): diarrhea dizziness headache loss of appetite nausea, vomiting nervousness What may interact with this medicine? Do not take this medicine with any of the following medications: aminobenzoate potassium dofetilide metronidazole This medicine may also interact with the following medications: NEGRA inhibitors like benazepril, enalapril, lisinopril, and ramipril cyclosporine digoxin diuretics indomethacin medicines for diabetes methenamine methotrexate phenytoin potassium supplements pyrimethamine sulfinpyrazone tricyclic antidepressants warfarin What if I miss a dose? If you miss a dose, take it as soon as you can. If it is almost time for your next dose, take only that dose. Do not take double or extra doses. Where should I keep my medicine? Keep out of the reach of children. Store at room temperature between 20 to 25 degrees C (68 to 77 degrees F). Protect from light. Throw away any unused medicine after the expiration date. What should I tell my health care provider before I take this medicine? They need to know if you have any of these conditions: anemia asthma being treated with anticonvulsants if you frequently drink alcohol containing drinks kidney disease liver disease low level of folic acid or [id number] dehydrogenase poor nutrition or malabsorption porphyria severe allergies thyroid disorder an unusual or allergic reaction to sulfamethoxazole, trimethoprim, sulfa drugs, other medicines, foods, dyes, or preservatives or trying to get breast-feeding What should I watch for while using this medicine? Tell your doctor or health healthcare sales representative if your symptoms do not improve. Drink several glasses of water a day to reduce the risk of kidney problems. Do not treat diarrhea with over the counter products. Contact your doctor if you have diarrhea that lasts more than 2 days or if it is severe and watery. This medicine can make you more sensitive to the sun. Keep out of the sun. If you cannot avoid being in the sun, wear protective clothing and use a sunscreen. Do not use sun lamps or tanning beds/booths. You have been given the following additional information: Abscess, Antiobiotic Treatment Only Cellulitis MRSA Skin Infection, Suspected Or Confirmed Sulfamethoxazole, Trimethoprim Oral tablet (Electronically signed by Huma Quan A.R.N.P. 03/15/2017 18:11)
--- NOTE | 2017-03-15 18:12 | ED MED RECONCILIATION SUMMARY ---
Patient: SEDAARTHURLEONARD JR Medication Reconciliation Report [facility] VisitID: [id number] [address] [place] [address] 41y, M Registration Date/Time: 03/15/2017 Weight: 68.0 kg Height/Length: 70 in. BMI: 21.5 ALLERGIES: Codeine, Toradol, Zofran The patient's Home Medications are listed below: NONE. The source(s) of the original Home Medication information: patient The following Medications were given to the patient in the Emergency Department: None. The following Medications were prescribed to the patient: Bactrim DS 800 mg / 160 mg: take 1 tablet orally every 12 hours for 10 days. No refill. -- Huma Quan A.R.N.P.
--- NOTE | 2017-03-15 18:12 | ED MAR SUMMARY ---
..... Medication Administration Record [facility] [address] [place], [place] [id number] Patient: LEONARD CASTILLO Visit ID: [id number] 41y, M Weight: 68.0 kg Height/Length: 70 in BMI: 21.5 ALLERGIES: Codeine, Toradol, Zofran
--- NOTE | 2017-03-15 18:12 | ED MED RECONCILIATION SUMMARY ---
Patient: SEDAARTHURLEONARD JR Medication Reconciliation Report [facility] VisitID: [id number] [address] [place] [address] 41y, M Registration Date/Time: 03/15/2017 Weight: 68.0 kg Height/Length: 70 in. BMI: 21.5 ALLERGIES: Codeine, Toradol, Zofran The patient's Home Medications are listed below: NONE. The source(s) of the original Home Medication information: patient The following Medications were given to the patient in the Emergency Department: None. The following Medications were prescribed to the patient: Bactrim DS 800 mg / 160 mg: take 1 tablet orally every 12 hours for 10 days. No refill. -- Huma Quan A.R.N.P.
== END 2017-03-15 17:46 | disposition home or self-care (01) ==
LOC: ED SRH 17:03
DX: L02.31 Cutaneous abscess of buttock (principal); Z88.5 Allergy status to narcotic agent; Z88.6 Allergy status to analgesic agent; Z88.8 Allergy status to other drugs, medicaments and biological substances
CPT/HCPCS: 90131; 90148; 90309; 90470